=== PATIENT | male | born 1970 | race American Indian/Alaskan Native ===

== ENCOUNTER 2016-07-22 09:38 | Emergency (ER) | payer SELFPAY ==
[2016-07-22 10:43] LABS: Basophils % (Auto) 0.5 % (0.0-1.8); Eosinophils % (Auto) 1.4 % (0.0-4.3); Hematocrit 41.8 % (35.5-45.6); Hemoglobin 13.9 gm/dl (11.8-15.2); Mean Corpuscular HGB Conc 33 % (32-34); Mean Corpuscular Hemoglobin 31 pg (28-32); Mean Corpuscular Volume 94 fl (84-94); Platelet Count 159 K/mm3 (140-440); Red Blood Count 4.46 M/mm3 (3.65-5.03); Red Cell Distribution Width 12.9 % (13.2-15.2); White Blood Count 9.5 K/mm3 (4.5-11.0)
[2016-07-22 10:51] LABS: Creatine Kinase MB 2.3 ng/mL (0.0-4.0)
[2016-07-22 10:52] LABS: Alanine Aminotransferase 10 units/L (7-56); Albumin 3.7 g/dL (3.9-5); Albumin/Globulin Ratio 0.9 %; Alkaline Phosphatase 49 units/L (35-129); Anion Gap 14 mmol/L; BUN/Creatinine Ratio 9.09; Bilirubin,Total 0.4 mg/dL (0.1-1.2); Blood Urea Nitrogen 10 mg/dL (9-20); Calcium 9.2 mg/dL (8.4-10.2); Carbon Dioxide 28 mmol/L (22-30); Chloride 99.5 mmol/L (98-107); Creatine Kinase 1206 units/L (55-170); Glucose 76 mg/dL (75-100); INR 0.91 (0.87-1.13); Potassium 3.7 mmol/L (3.6-5.0); Sodium 138 mmol/L (137-145); Total Protein 7.6 g/dL (6.3-8.2)
[2016-07-22 10:53] LABS: Partial Thromboplastin Time 34.3 Sec. (24.2-36.6)
[2016-07-22 10:57] LABS: Bilirubin,Direct < 0.2 mg/dL (0-0.2)
--- NOTE | 2016-07-22 11:02 | XRay Report ---
Single view chest: History: Chest pain. Findings: Normal cardiomediastinal silhouette. Trachea is midline. No consolidation, pneumothorax or pleural effusion. Impression: No acute cardiopulmonary findings.
[2016-07-22 11:21] LABS: Urine Drugs of Abuse Note Disclamer
[2016-07-22] MEDS ORDERED: NACL 0.9% 1000 ML 1,000 ML IV ONE (11:43)
[2016-07-22] MEDS ORDERED: TORADOL IV ONE (11:44)
[2016-07-22 11:48] LABS: Bilirubin,Urine NEG (Negative); Blood,Urine LG (Negative); Ketones,Urine NEG (Negative); Leukocyte Esterase,Urine LG (Negative); Mucus,Urine FEW /HPF; Nitrite,Urine NEG (Negative); Urobilinogen,Urine < 2.0 mg/dL (<2.0)
[2016-07-22 11:50] LABS: WBC,Urine > 182.0 /HPF (0.0-6.0)
--- NOTE | 2016-07-22 13:16 | Emergency Department Report ---
ED Chest Pain HPI - General Chief Complaint: Chest Pain Stated Complaint: CHEST PAIN /SORENESS/LT SHOULDER PAIN Time Seen by Provider: 07/22/16 09:51 Source: patient Mode of arrival: Ambulatory Limitations: No Limitations - History of Present Illness Initial Comments: Patient refers gradual onset of right-sided chest pain that was nonpleuritic on Tuesday. Yesterday he noted soreness in his left chest. He states the pain "jumped from the right to the left. He describes the pain in his left chest as a soreness which goes up to the collarbone. It is not associated with shortness of breath nausea vomiting or sweating. The patient states that it clearly exacerbates on movement bending or lifting. He states he does a lot of lifting at work. Patient denies any history of coronary artery disease to his knowledge in his family. He's never been admitted to the hospital. He does not take any regular medicines. He denies hypertension and elevated cholesterol. MD Complaint: chest pain -: days(s) Onset: during rest Pain Location: left chest, right chest Pain Radiation: none Severity: moderate Quality: other (soreness) Consistency: intermittent Improves With: nothing Worsens With: movement Context: other (does lifting at work) re: denies: nausea, vomting, diaphoresis, dyspnea, sense of impending doom Other Symptoms: denies: cough, fever, syncope, rash, acid taste in mouth, leg swelling, palpitations, burping Treatments Prior to Arrival: none Aspirin use within the Past 7 Days: (0) No - Related Data Previous Rx's Medication Instructions Recorded Last Taken Type Ciprofloxacin HCl [Ciprofloxacin 500 mg PO Q12HR #10 tab 07/22/16 Unknown Rx TAB] traMADol [Ultram] 50 mg PO Q6HR PRN #14 tablet 07/22/16 Unknown Rx Allergies Allergy/AdvReac Type Severity Reaction Status Date / Time No Known Allergies Allergy Unverified 07/22/16 10:11 LYNDSEY score - Lyndsey Score Age > 65: (0) No Aspirin use within the Past 7 Days: (0) No 3 or more CAD Risk Factors: (0) No 2 or more Angina events in past 24 hrs: (0) No Known CAD with more than 50% Stenosis: (0) No Elevated Cardiac Markers: (0) No ST Deviation Greater than 0.5mm: (0) No LYNDSEY Score: 0 ED Review of Systems ROS: Stated complaint: CHEST PAIN /SORENESS/LT SHOULDER PAIN Other details as noted in HPI Constitutional: denies: chills, fever Eyes: denies: eye pain, eye discharge, vision change ENT: denies: ear pain, throat pain Respiratory: denies: cough, shortness of breath, wheezing Cardiovascular: chest pain. denies: palpitations Endocrine: no symptoms reported Gastrointestinal: denies: abdominal pain, nausea, diarrhea Genitourinary: denies: urgency, dysuria Musculoskeletal: denies: back pain, joint swelling, arthralgia Skin: denies: rash, lesions Neurological: denies: headache, weakness, paresthesias Psychiatric: denies: anxiety, depression Hematological/Lymphatic: denies: easy bleeding, easy bruising ED Past Medical Hx - Past Medical History Previous Medical History?: No Additional medical history: pt denies prior medical history - Surgical History Past Surgical History?: Yes Additional Surgical History: left knee surgery - Social History Smoking Status: Current Some Day Smoker Substance Use Type: None - Medications Home Medications: Home Medications Medication Instructions Recorded Confirmed Last Taken Type Ciprofloxacin HCl [Ciprofloxacin 500 mg PO Q12HR #10 tab 07/22/16 Unknown Rx TAB] traMADol [Ultram] 50 mg PO Q6HR PRN #14 tablet 07/22/16 Unknown Rx ED Physical Exam - General Limitations: No Limitations General appearance: alert, in no apparent distress - Head Head exam: Present: atraumatic, normocephalic - Eye Eye exam: Present: normal appearance. Absent: scleral icterus - ENT ENT exam: Present: normal exam, mucous membranes moist - Neck Neck exam: Present: normal inspection. Absent: tenderness, meningismus - Respiratory Respiratory exam: Present: normal lung sounds bilaterally, chest wall tenderness (reproducing the patient's symptoms left anterior and periclavicular chest). Absent: respiratory distress - Cardiovascular Cardiovascular Exam: Present: regular rate, normal rhythm. Absent: systolic murmur, diastolic murmur, rubs, gallop - GI/Abdominal GI/Abdominal exam: Present: soft, normal bowel sounds. Absent: distended, tenderness, guarding, rebound, rigid - Rectal Rectal exam: Present: deferred - Extremities Exam Extremities exam: Present: normal inspection, full ROM. Absent: tenderness, normal capillary refill, pedal edema, joint swelling, calf tenderness - Back Exam Back exam: Present: normal inspection. Absent: CVA tenderness (R), CVA tenderness (L), muscle spasm - Neurological Exam Neurological exam: Present: alert, oriented X3, CN II-XII intact. Absent: motor sensory deficit - Psychiatric Psychiatric exam: Present: normal affect, normal mood - Skin Skin exam: Present: warm, dry, intact, normal color. Absent: rash ED Course Vital Signs 07/22/16 07/22/16 09:55 11:56 Temperature 98.8 F Pulse Rate 78 Respiratory 18 20 Rate Blood Pressure 125/81 O2 Sat by Pulse 100 Oximetry - Reevaluation(s) Reevaluation #1: Explained to the patient that he has a few reasons to be admitted to the hospital #1 abnormal EKG #2 cocaine associated chest pain #3 rhabdomyolysis. He also has a UTI. I've explained to him that he also he is quite stable now chest pain-free is at risk for a bad outcome to include heart attack and prior to him being able to get an outpatient evaluation. He has full mental capacity to decline admission. He has done so despite my advice to the contrary. He will sign out AMA. I will treat his UTI and have given him a liter of IV fluid. He states that he will not abuse cocaine again. He is signed out AMA in stable condition. 07/22/16 13:28 ED Medical Decision Making - Lab Data Result diagrams: 07/22/16 10:20 07/22/16 10:20 Laboratory Results - last 24 hr 07/22/16 07/22/16 07/22/16 10:20 10:20 10:20 WBC 9.5 RBC 4.46 Hgb 13.9 Hct 41.8 MCV 94 MCH 31 MCHC 33 RDW 12.9 L Plt Count 159 Lymph % (Auto) 18.6 Roberts % (Auto) 10.2 H Eos % (Auto) 1.4 Baso % (Auto) 0.5 Lymph # 1.8 Roberts # 1.0 H Eos # 0.1 Baso # 0.1 Seg Neutrophils % 69.3 Seg Neutrophils # 6.6 PT 12.2 INR 0.91 APTT 34.3 Sodium 138 Potassium 3.7 Chloride 99.5 Carbon Dioxide 28 Anion Gap 14 BUN 10 Creatinine 1.1 Estimated GFR > 60 BUN/Creatinine Ratio 9.09 Glucose 76 Calcium 9.2 Total Bilirubin 0.4 Direct Bilirubin < 0.2 AST 26 ALT 10 Alkaline Phosphatase 49 Total Creatine Kinase 1206 H CK-MB (CK-2) 2.3 CK-MB (CK-2) Rel Index 0.1 Troponin T < 0.010 Total Protein 7.6 Albumin 3.7 L Albumin/Globulin Ratio 0.9 Urine Color Urine Turbidity Urine pH Ur Specific [place] Urine Protein Urine Glucose (UA) Urine Ketones Urine Blood Urine Nitrite Urine Bilirubin Urine Urobilinogen Ur Leukocyte Esterase Urine WBC (Auto) Urine RBC (Auto) U Epithel Cells (Auto) Urine WBC Clumps Urine Mucus Urine Opiates Screen Urine Methadone Screen Ur Barbiturates Screen Ur Phencyclidine Scrn Ur Amphetamines Screen U Benzodiazepines Scrn Urine Cocaine Screen U Marijuana (THC) Screen 07/22/16 07/22/16 10:26 10:26 WBC RBC Hgb Hct MCV MCH MCHC RDW Plt Count Lymph % (Auto) Roberts % (Auto) Eos % (Auto) Baso % (Auto) Lymph # Roberts # Eos # Baso # Seg Neutrophils % Seg Neutrophils # PT INR APTT Sodium Potassium Chloride Carbon Dioxide Anion Gap BUN Creatinine Estimated GFR BUN/Creatinine Ratio Glucose Calcium Total Bilirubin Direct Bilirubin AST ALT Alkaline Phosphatase Total Creatine Kinase CK-MB (CK-2) CK-MB (CK-2) Rel Index Troponin T Total Protein Albumin Albumin/Globulin Ratio Urine Color Yellow Urine Turbidity Cloudy Urine pH 6.0 Ur Specific [place] 1.014 Urine Protein 30 mg/dl Urine Glucose (UA) Neg Urine Ketones Neg Urine Blood Lg Urine Nitrite Neg Urine Bilirubin Neg Urine Urobilinogen < 2.0 Ur Leukocyte Esterase Lg Urine WBC (Auto) > 182.0 H Urine RBC (Auto) 23.0 U Epithel Cells (Auto) < 1.0 Urine WBC Clumps 3+ Urine Mucus Few Urine Opiates Screen Presumptive negative Urine Methadone Screen Presumptive negative Ur Barbiturates Screen Presumptive negative Ur Phencyclidine Scrn Presumptive negative Ur Amphetamines Screen Presumptive negative U Benzodiazepines Scrn Presumptive negative Urine Cocaine Screen Presumptive positive U Marijuana (THC) Screen Presumptive negative - EKG Data -: EKG Interpreted by Ia EKG shows normal: sinus rhythm, axis, intervals Rate: normal - EKG Data Interpretation: other (the patient does have nonspecific changes in the inferior leads. He also has some J-point elevation in the precordial leads with a biphasic T wave in the 3 and V4.) - Radiology Data interpreted by me: Chest x-ray no acute findings Critical care attestation.: If time is entered above; I have spent that time in minutes in the direct care of this critically ill patient, excluding procedure time. ED Disposition Clinical Impression: Cocaine abuse Chest pain Qualifiers: Chest pain type: unspecified Qualified Code(s): R07.9 - Chest pain, unspecified Rhabdomyolysis Qualifiers: Rhabdomyolysis type: non-traumatic Qualified Code(s): M62.82 - Rhabdomyolysis UTI (urinary tract infection) Qualifiers: Urinary tract infection type: site unspecified Hematuria presence: without hematuria Qualified Code(s): N39.0 - Urinary tract infection, site not specified Disposition: DISCHARGED TO HOME OR SELFCARE Is pt being admited?: No Does the pt Need Aspirin: Yes Condition: Stable Instructions: Chest Pain (ED) Additional Instructions: Return as desired for further care and evaluation. 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 Aspirin every day is recommended at least 2 baby aspirin. Increase her fluid intake obviously do not use cocaine. Antibiotic as directed. Follow-up on your urine culture. Prescriptions: Ciprofloxacin HCl [Ciprofloxacin TAB] 500 mg PO Q12HR #10 tab traMADol [Ultram] 50 mg PO Q6HR PRN #14 tablet PRN Reason: Pain Referrals: DEBRA BHARDWAJ MD [Staff Physician] - [facility] [Provider Group] - [facility] Forms: AMA Form Time of Disposition: 13:35
[2016-07-22] MEDS ORDERED: LEVAQUIN PO ONE (13:31)
[2016-07-22] MEDS ORDERED: ASPIRIN PO ONE (13:31)
[2016-07-22 13:44] VITALS: BP 125/84
== END 2016-07-22 14:05 | disposition home or self-care (01) ==
LOC: ED 09:38
DX: M62.82 Rhabdomyolysis (principal); R07.9 Chest pain, unspecified; N39.0 Urinary tract infection, site not specified; F14.10 Cocaine abuse, uncomplicated; F17.200 Nicotine dependence, unspecified, uncomplicated
CPT/HCPCS: 36415; 71010; 80048; 80074; 80307; 81001; 82550; 82553; 84484; 85025; 85610; 85730; 87076; 87086; 87186; 93005; 93010; 96361; 96374; 99284; J1885; J7030